=== PATIENT | male | born 1955 | race Caucasian/White ===

== ENCOUNTER 2024-12-11 01:58 | Emergency (ER) | payer OTHER, SELFPAY ==
[2024-12-11 02:01] VITALS: BP 144/82
--- NOTE | 2024-12-11 02:12 | ED.GENMED ---
History of Present Illness
<Marley Scott PA-C - Last Filed: 12/11/24 05:01>
General
Chief Complaint: Musculo-Skeletal Complaint
Source: patient
Exam Limitations: none
Time Seen by Provider: 12/11/24 02:11
Nursing documentation reviewed up to this point in time: agreed with
History of Present Illness
History of Present Illness:
This is a 69-year-old male with a past medical history of coronary artery disease, aortic gnosis status post TAVR, hypertension, presents emergency department today with concerns of low back pain radiating to left leg for the past 2 days. Patient
reports that he was doing a lot of bending and twisting last week doing a lot of gardening work multiple days in a row and states that a few days after that, he developed a dull pain in the paralumbar region. Patient states that suddenly in the
past few days, its gotten a lot worse and today it became so severe that he had a hard time sleeping because he states that the pain tends to be worse when lying back. He does not recall a clear inciting injury. He denies any falls. He does not take
any blood thinners. Patient states that the pain does improve with bending/leaning forward. He has been taking Tylenol at home without relief, and occasionally ibuprofen. He states that today, weight bearing on the left side became painful. He
follows with [facility] and reports that he made an appointment to see a [facility] but the earliest they could get him in was January 03. He denies any saddle paresthesias, any urinary or fecal incontinence, difficulty ambulating, weakness
in his extremities, chest pain, shortness of breath, hematuria, dysuria.
Review of Systems
<Marley Scott PA-C - Last Filed: 12/11/24 05:01>
Review of Systems
All Other Systems: ROS reviewed and negative except as documented in HPI and ROS
Phy Exam
<Marley Scott PA-C - Last Filed: 12/11/24 05:01>
Physical Exam
Physical Exam:
General: Patient is well appearing and in no acute distress; non-toxic
Skin: Warm and dry, no rashes or lesions
Head: Normocephalic, atraumatic
Eyes: Sclera non-icteric. EOMs intact.
Cardiac: Regular rate
Peripheral Vascular: No lower extremity swelling or edema. 2+ dorsalis pedis pulses bilaterally
Pulm: Normal respiratory effort, no wheezes, rales, or rhonchi
Abdomen: No abdominal tenderness to palpation
Musculoskeletal: Negative straight leg raise. Left paralumbar tenderness to palpation, no midline spinal tenderness.
Neuro: CN II-XII intact, no focal neurologic deficits.
Psychiatric: Appropriate mood and affect.
Course
Dailt;Marley Scott PA-C - Last Filed: 12/11/24 05:01>
Orders/Labs/Results
Orders:
Orders
12/11/24 02:27
Ketorolac [Toradol] 15 mg IM NOW STA
CR Lumbar Spine 2 Or 3 Views Urgent
Comment:
Reason For Exam: low back pain radiating into the left leg
12/11/24 03:07
Lidocaine [Lidocaine 4% Patch] 1 patch TOPICAL DAILY ONE
Apply Lidocaine patch(s) to:: left paralumbar region
Oxycodone/Acetaminophen [Percocet 5/325] 1 tablet PO NOW STA
12/11/24 03:11
Ketorolac [Toradol] 45 mg IM NOW STA
12/11/24 04:26
Oxycodone/Acetaminophen [Percocet 5/325] 1 tablet PO NOW STA
Prednisone [Deltasone] 50 mg PO NOW STA
12/11/24 04:33
Cyclobenzaprine HCl [Flexeril] 10 mg PO NOW STA
Vital Signs
Initial and Last Documented VS:
Initial Vital Signs
Temp Pulse Resp BP Pulse Ox
97.8 F 81 20 144/82 99
12/11/24 02:01 12/11/24 02:01 12/11/24 02:01 12/11/24 02:01 12/11/24 02:01
Last Documented Vital Signs
Temp Pulse Resp BP Pulse Ox
97.8 F 81 20 140/93 99
12/11/24 02:01 12/11/24 02:01 12/11/24 02:01 12/11/24 04:42 12/11/24 02:01
<Adriana Car DO - Last Filed: 12/11/24 04:32>
Orders/Labs/Results
Orders:
Orders
12/11/24 02:27
Ketorolac [Toradol] 15 mg IM NOW STA
CR Lumbar Spine 2 Or 3 Views Urgent
Comment:
Reason For Exam: low back pain radiating into the left leg
12/11/24 03:07
Lidocaine [Lidocaine 4% Patch] 1 patch TOPICAL DAILY ONE
Apply Lidocaine patch(s) to:: left paralumbar region
Oxycodone/Acetaminophen [Percocet 5/325] 1 tablet PO NOW STA
12/11/24 03:11
Ketorolac [Toradol] 45 mg IM NOW STA
12/11/24 04:26
Oxycodone/Acetaminophen [Percocet 5/325] 1 tablet PO NOW STA
Prednisone [Deltasone] 50 mg PO NOW STA
12/11/24 04:33
Cyclobenzaprine HCl [Flexeril] 10 mg PO NOW STA
Vital Signs
Initial and Last Documented VS:
Initial Vital Signs
Temp Pulse Resp BP Pulse Ox
97.8 F 81 20 144/82 99
12/11/24 02:01 12/11/24 02:01 12/11/24 02:01 12/11/24 02:01 12/11/24 02:01
Last Documented Vital Signs
Temp Pulse Resp BP Pulse Ox
97.8 F 81 20 140/93 99
12/11/24 02:01 12/11/24 02:01 12/11/24 02:01 12/11/24 04:42 12/11/24 02:01
<Marley Scott PA-C - Last Filed: 12/11/24 05:01>
MDM/Problems Addressed
Differential Diagnosis Includes:
ddx include spinal stenosis, lumbar sprain, DJD/osteoarthritis, herniated disc, bursitis, nephrolithiasis, AAA
MDM/Problems Addressed:
This is a 69-year-old male with a past medical history of coronary artery disease, aortic gnosis status post TAVR, hypertension, presents emergency department today with concerns of low back pain radiating to left leg for the past 2 days. Patient
reports that he was doing a lot of bending and twisting last week doing a lot of gardening work multiple days in a row and states that a few days after that, he developed a dull pain in the paralumbar region which became acutely worse. Does have
pain with weight bearing.'s been taking Tylenol and Motrin without relief. He has no abdominal pain associated with this, no urinary symptoms, no signs concerning for cauda equina, no fevers or chills. On exam, his vital signs are stable he is not
hypotensive he is not tachycardic. He is well-appearing in no acute distress, he does have left-sided paraspinal tenderness palpation but negative straight leg raise, suspect paralumbar sprain with possible component of spinal stenosis considering
his symptoms improved with leaning forward. Low suspicion for aortic pathology. Patient was treated with toradol, percocet, lidocaine patch, muscle relaxant. Patient able to ambulate improved. Patient stable for discharge.
Chronic conditions affecting care:
cad, aortic dissection s/p TAVR,
<Marley Scott PA-C - Last Filed: 12/11/24 05:01>
*Pulse Oximetry
Patient hypoxic: no
*Critical Care Note
Total Time (30-74mins, 75-104mins- exclusive of procedures): Not Applicable
<Marley Scott PA-C - Last Filed: 12/11/24 05:01>
Update Note
Update Note:
Update 3 AM�patient notes no improvement in his symptoms, will give higher dose of Toradol as well as Percocet, and lidocaine patch
Update 3:50 AM�patient states that his symptoms are unchanged compared to initial presentation at the emergency department, patient states that when he got up to use the bathroom, he feels like that triggered his muscle to go into spasm and states
that his pain persists
ED Attending Note
<Marley Scott PA-C - Last Filed: 12/11/24 05:01>
-
Portions of this chart may have been created with voice recognition software.� Occasional wrong word or��sound alike� substitutions may have occurred due to the inherent limitations of voice recognition software.
<Adriana Car DO - Last Filed: 12/11/24 04:32>
ED Attending Note
Patient seen and examined by attending physician: Yes
I performed a history and physical exam of patient and discussed management with resident, I reviewed resident's note and agree with documented findings and plan of care.: Yes
ED Attending Note:
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
No insightful injury but admits to significant bending, lifting, shoveling etc. over the past week while doing extensive gardening.
He does have history of occasional low back pain but no prior history of sciatica, generally his lower back pain resolves in a day or 2 of rest.
No red flags in history nor exam, no weakness or numbness, no saddle anesthesia, no difficulty moving his bowels or bladder, no rash nor fever.
Exam notable for moderate left lumbar paravertebral muscle spasm with local tenderness to palpation along the left lateral lumbar musculature. No midline bony tenderness. Moderately restricted lumbar range of motion related to pain.
No weakness or numbness.
Abdomen is soft without appreciable tenderness. There is a small nontender umbilical hernia noted.
Lumbar spine x-ray shows moderate DJD L4-L5 otherwise unremarkable. Moderate stool throughout the colon without obstruction.
Thus far after an IM dose of Toradol, lidocaine patch, oral dose of Percocet patient notes mild improvement in pain. He is able to reposition with ease, able to stand although tentatively in 1 standing, ambulatory with steady unaided gait.
History and exam consistent with acute lumbar sprain/strain with left-sided sciatica.
Will give an additional dose of Percocet and initiate a course of prednisone.
Recommend initiation of physical therapy and prescription will be provided.
He has an initial appointment with orthopedics in [place] on January 06.
He was scheduled for umbilical hernia repair next week but plans to cancel the surgery until his lower back pain resolves.
He is requesting referral to orthopedics at [facility] [place] to home.
Discharge Plan
Departure
Patient Disposition: Home (Routine Discharge)
Date of Disposition: 12/11/24
Time of Disposition: 04:51
Patient with high blood pressure during this ER visit?: Yes
Condition: Good
Discharge Problem:
Lumbar sprain, Sciatica of left side
Instructions: Sciatica ED, Low back pain - Discharge instructions, BLOOD PRESSURE
Prescriptions:
New
prednisone 10 mg Tablet
See Rx Instructions .ROUTE .COMPLEX Qty: 30 0RF
Rx Instructions:
Take By Mouth:
40 mg daily x3 days, 30 mg daily x3 days,
20 mg daily x3 days, 10 mg daily x3 days.
cyclobenzaprine 10 mg tablet
10 mg PO TID PRN (Reason: muscle spasm) Qty: 10 0RF
Referrals:
Edgar Raygoza MD [Family Provider] -
Job Reaves MD [Active] - Call in 1-3 days for appt
Activity Restrictions/Additional Instructions:
Prednisone has been sent to your pharmacy. Please follow instructions for tapered dosing. Please do not take ibuprofen or other NSAIDs while you are taking this medication.
Cyclobenzaprine, a muscle relaxant, has also been sent to your pharmacy.
Please see attached number for referral for orthopedics. You can call the attached number later today to schedule an appointment.
PLEASE RETURN EMERGENCY DEPARTMENT SHOULD YOU DEVELOP INABILITY TO AMBULATE, GENITAL PARESTHESIAS, URINARY OR FECAL INCONTINENCE, CHEST PAIN, SHORTNESS OF BREATH, LIGHTHEADEDNESS, DIZZINESS, OR ANY OTHER SIGNS OR SYMPTOMS WORRISOME TO YOU.
Interventions
Interventions:
*Risk Screen - Suicide Last Done: 12/11/24 02:01
*General Assessment Last Done: 12/11/24 02:01
*Neglect/Abuse Screening Last Done: 12/11/24 02:01
*ED- Fall Risk Assessment Last Done: 12/11/24 02:01
*ED COVID-19 Vaccine History Last Done: 12/11/24 02:01
ED-Musculoskeletal Assessment Last Done: 12/11/24 02:26
Discharge Date and Time
Print Language: URDU
[2024-12-11 02:25] VITALS: BMI 21.5
[2024-12-11] MEDS: TORADOL 15 MG IM (02:30)
[2024-12-11] MEDS: LIDOCAINE 4% PATCH 1 PATCH TOPICAL (03:14)
[2024-12-11] MEDS: PERCOCET 5/325 1 TABLET PO ×2 (03:14→04:39)
[2024-12-11] MEDS: TORADOL 45 MG IM (03:19)
[2024-12-11] MEDS: FLEXERIL 10 MG PO (04:39)
[2024-12-11] MEDS: DELTASONE 50 MG PO (04:39)
[2024-12-11 04:42] VITALS: BP 140/93
== END 2024-12-11 05:20 | disposition home or self-care (01) ==
LOC: EMR 01:58
PROVIDERS: EMERGENCY PHYSICIAN Emergency Medicine; FAMILY PHYSICIAN Internal Medicine
DX: S33.5XXA Sprain of ligaments of lumbar spine, initial encounter (principal); X50.1XXA Overexertion from prolonged static or awkward postures, initial encounter; M54.42 Lumbago with sciatica, left side; I10 Essential (primary) hypertension; I25.10 Atherosclerotic heart disease of native coronary artery without angina pectoris; E78.5 Hyperlipidemia, unspecified; Z95.2 Presence of prosthetic heart valve
CPT/HCPCS: 96372; 99284; 72100

== ENCOUNTER 2024-12-26 05:47 | Outpatient (RCR) | payer OTHER, SELFPAY | END 2024-12-26 23:59 | disposition home or self-care (01) | LOC: RPT 05:47 | PROVIDERS: ATTENDING PHYSICIAN Emergency Medicine; FAMILY PHYSICIAN Internal Medicine | DX: M54.42 Lumbago with sciatica, left side (principal); S39.012D Strain of muscle, fascia and tendon of lower back, subsequent encounter; Z73.6 Limitation of activities due to disability | CPT/HCPCS: 97112; 97161 ==

== ENCOUNTER 2025-01-15 14:57 | Outpatient (RCR) | payer OTHER, SELFPAY | END 2025-01-15 23:59 | disposition home or self-care (01) | LOC: RPT 14:57 | PROVIDERS: ATTENDING PHYSICIAN Emergency Medicine; FAMILY PHYSICIAN Internal Medicine | DX: M54.42 Lumbago with sciatica, left side (principal); S39.012D Strain of muscle, fascia and tendon of lower back, subsequent encounter; Z73.6 Limitation of activities due to disability; M51.35 Other intervertebral disc degeneration, thoracolumbar region | CPT/HCPCS: 97530 ==

== ENCOUNTER 2025-07-10 13:03 | Inpatient (IN) | payer OTHER, SELFPAY ==
[2025-07-10] VITALS (30 sets, daily range): BP systolic 88–130; BP diastolic 61–97; BMI 23.1
[2025-07-10] MEDS: LOPRESSOR 5 MG IV (09:08)
--- NOTE | 2025-07-10 09:19 | ED.GENMED ---
History of Present Illness
<Armando Rao MD, Resident - Last Filed: 07/10/25 13:22>
General
Chief Complaint: Heart Rate Problem
Source: patient
Time Seen by Provider: 07/10/25 08:36
History of Present Illness
History of Present Illness:
Patient is a 69-year-old male with PMH of AVR, intraoperative NJ, single episode of atrial fibrillation, and recent TIA who presents to the [facility] ED for transient substernal chest pain, shortness of breath, diaphoresis, dizziness, and
palpitations while exercising at the gym this morning. Within 5 minutes of starting weightlifting exercise, these symptoms developed and lasted for approximately 2 minutes. Patient follows with [facility] cardiology. Patient had a TIA approximately
1 month ago. Subsequent workup did not identify source for TIA, and the patient was started on Plavix. Patient also had 1 prior episode of atrial fibrillation, which required treatment with metoprolol to break him out of the arrhythmia. Initial
evaluation in the ED, patient reports no symptoms. However, cardiac monitoring and EKG showed a wide-complex tachycardia. Denies nausea, vomiting, or recent illnesses. Patient exercises regularly and normally tolerates it well. Patient is
scheduled for LOPEZ and loop recorder next week
Past History
<Armando Rao MD, Resident - Last Filed: 07/10/25 13:22>
Past History
ED Past Medical History: Arrthythmia, NJ, Valvular disease (S/p AVR) and Other (TIA)
ED Past Surgical History: Cardiac (AVR)
Review of Systems
<Armando Rao MD, Resident - Last Filed: 07/10/25 13:22>
Review of Systems
Respiratory: Reports trouble breathing
Cardiac: Reports chest pain, diaphoresis and palpitations
ABD/GI: Denies abdominal pain, nausea or vomiting
Neurological: Reports dizzy
Phy Exam
<Armando Rao MD, Resident - Last Filed: 07/10/25 13:22>
Physical Exam
Physical Exam:
General: NAD. Conversant.
CV: Tachycardic. No M/R/G. No LE edema.
Pulm: CTAB. No wheezes or crackles.
Neuro: A&O x 3. NFD. CN II to XII grossly intact.
Course
<Armando Rao MD, Resident - Last Filed: 07/10/25 13:22>
Orders/Labs/Results
Orders:
Orders
07/10/25
Electrocardiogram (*1) Stat
Comment: DONE
Electrocardiogram (*1) Stat
Comment: DONE
07/10/25 08:43
Adenosine [Adenocard] 6 mg .ROUTE .STK-MED ONE
07/10/25 08:49
Metoprolol [Lopressor] 5 mg .ROUTE .STK-MED ONE
07/10/25 08:53
Adenosine [Adenocard] 12 mg .ROUTE .STK-MED ONE
07/10/25 09:06
Metoprolol [Lopressor] 5 mg IV NOW STA
07/10/25 09:17
Propofol [Diprivan] 20 ml .ROUTE .STK-MED
07/10/25 09:57
Complete Blood Count/No Diff Urgent
Comprehensive Metabolic Panel Urgent
Magnesium Urgent
07/10/25 09:58
NT-proBNP Urgent
TSH Urgent
Troponin I Urgent
07/10/25 10:08
Echo 2D MMode Color/Doppler Routine
Reason for Study: ventricular tachycardia
07/10/25 12:36
Admit/Transfer Patient As Directed
Co-Sign Provider:
Level of Care: Inpatient admission
Assign to:: IVU
Physician / Group: jerald
Diagnosis: wide complex tachycardia
Reason for Hospitalization: wide complex tachycardia
Expected length of stay greater than two midnights?: Yes
ELOS- Estimated Length of Stay in days: 2
I certify the patient meets the requirements for IP care: Yes
Code Status As Directed
Resuscitation Status: Full Code
PRN Pain Medication Management As Directed
May give lesser potent ordered pain med per pt: Yes
preference::
Protocol:: Medication orders for pain may be administered in a
manner that supports deferring to patient preference
when the pt is:
- Requesting an ordered lesser potent pain medication.
Least to most potent pain medications are defined
as: acetaminophen < NSAID < tramadol < opioids
(morphine, oxycodone, hydromorphone).
- Requesting a lesser dose of the same medication IF
ORDERED.
- Requesting a less intrusive route of administration
if both routes are prescribed by the provider (PO <
IV).
Abnormal Lab Results
07/10/25
09:57
MCH 31.4 H pg
(27.0-31.0)
MPV 10.5 H fL
(7.4-10.4)
BUN 24 H mg/dl
(9-20)
Glucose 173 H mg/dl
(70-99)
07/10/25 09:57
07/10/25 09:57
Vital Signs
Initial and Last Documented VS:
Initial Vital Signs
Pulse Resp BP Pulse Ox
66 18 123/97 98
07/10/25 08:32 07/10/25 08:32 07/10/25 08:32 07/10/25 08:32
Last Documented Vital Signs
Temp Pulse Resp BP Pulse Ox
98.1 F 58 19 125/79 98
07/10/25 09:53 07/10/25 13:15 07/10/25 13:15 07/10/25 11:00 07/10/25 13:15
<Kenny Stephens MD - Last Filed: 07/10/25 13:31>
Orders/Labs/Results
Orders:
Orders
07/10/25
Electrocardiogram (*1) Stat
Comment: DONE
Electrocardiogram (*1) Stat
Comment: DONE
07/10/25 08:43
Adenosine [Adenocard] 6 mg .ROUTE .STK-MED ONE
07/10/25 08:49
Metoprolol [Lopressor] 5 mg .ROUTE .STK-MED ONE
07/10/25 08:53
Adenosine [Adenocard] 12 mg .ROUTE .STK-MED ONE
07/10/25 09:06
Metoprolol [Lopressor] 5 mg IV NOW STA
07/10/25 09:17
Propofol [Diprivan] 20 ml .ROUTE .STK-MED
07/10/25 09:57
Complete Blood Count/No Diff Urgent
Comprehensive Metabolic Panel Urgent
Magnesium Urgent
07/10/25 09:58
NT-proBNP Urgent
TSH Urgent
Troponin I Urgent
07/10/25 10:08
Echo 2D MMode Color/Doppler Routine
Reason for Study: ventricular tachycardia
07/10/25 12:36
Admit/Transfer Patient As Directed
Co-Sign Provider:
Level of Care: Inpatient admission
Assign to:: IVU
Physician / Group: jerald
Diagnosis: wide complex tachycardia
Reason for Hospitalization: wide complex tachycardia
Expected length of stay greater than two midnights?: Yes
ELOS- Estimated Length of Stay in days: 2
I certify the patient meets the requirements for IP care: Yes
Code Status As Directed
Resuscitation Status: Full Code
PRN Pain Medication Management As Directed
May give lesser potent ordered pain med per pt: Yes
preference::
Protocol:: Medication orders for pain may be administered in a
manner that supports deferring to patient preference
when the pt is:
- Requesting an ordered lesser potent pain medication.
Least to most potent pain medications are defined
as: acetaminophen < NSAID < tramadol < opioids
(morphine, oxycodone, hydromorphone).
- Requesting a lesser dose of the same medication IF
ORDERED.
- Requesting a less intrusive route of administration
if both routes are prescribed by the provider (PO <
IV).
Abnormal Lab Results
07/10/25
09:57
MCH 31.4 H pg
(27.0-31.0)
MPV 10.5 H fL
(7.4-10.4)
BUN 24 H mg/dl
(9-20)
Glucose 173 H mg/dl
(70-99)
07/10/25 09:57
07/10/25 09:57
Vital Signs
Initial and Last Documented VS:
Initial Vital Signs
Pulse Resp BP Pulse Ox
66 18 123/97 98
07/10/25 08:32 07/10/25 08:32 07/10/25 08:32 07/10/25 08:32
Last Documented Vital Signs
Temp Pulse Resp BP Pulse Ox
98.1 F 58 19 125/79 98
07/10/25 09:53 07/10/25 13:15 07/10/25 13:15 07/10/25 11:00 07/10/25 13:15
Procedures
<Kenny Stephens MD - Last Filed: 07/10/25 13:31>
Moderate Sedation
ASA Risk Score: Class I
Chart and allergies reviewed: Yes
Consent for anesthesia obtained: Yes
Time out completed (validating right patient & procedure): Yes
Moderate Sedation Start Time(when first medication is given): 09:22
History of difficult intubation: No
Airway free of obstruction: Yes
Patient has a gag reflex: Yes
Patient is able to open mouth: Yes
Patient has no dentures: Yes
Patient has no loose teeth: Yes
Medication administered by Provider during Moderate Sedation: IV Propofol (mg)
Total dose administered: 40
Time drug administered: 09:22
Moderate Sedation Procedure End Time: 09:32
Cardioversion
Indication:: Other (wide complex tachycardia)
Performed by:: Kenny Stephens M.D.
Synchronized?: Yes
Energy Used: 200 joules
Number of attempts: 1
Successful?: Yes
Complications: None
ASA Risk Score: Class I
Any reaction or bad outcome to prior sedation/anesthesia?: No history of a reaction
Sedation level to be attained: moderate
Chart and allergies reviewed: Yes
Patient reassessed prior to sedation: Yes
Time out completed at (validating right patient & procedure): 09:22
History of difficult intubation: No
Airway free of obstruction: Yes
Patient has a gag reflex: Yes
Patient is able to open mouth: Yes
Patient has no dentures: Yes
Patient has no loose teeth: Yes
Medication administered by Provider during Moderate Sedation: IV Propofol (mg)
Total dose administered: 40
Time drug administered: :
Start Time: :22
Stop Time: 09:32
<Armando Rao MD, Resident - Last Filed: 07/10/25 13:22>
MDM/Problems Addressed
Differential Diagnosis Includes:
Ventricular tachycardia
Atrial fibrillation
Atrial flutter
Myocardial infarction
Ventricular fibrillation
MDM/Problems Addressed:
Assessment: Patient is a 69-year-old male with PMH of AVR, NJ, paroxysmal A-fib, and TIA who presents to the [facility] ED with transient chest pain, shortness of breath, diaphoresis, dizziness, and palpitations while exercising at the gym this
morning. EKG in the ED shows wide-complex tachycardia with a rate of approximately 180 bpm. Patient given 6 mg adenosine, followed by another 12 mg adenosine, neither of which resolved the wide-complex tachycardia. Cardiology was consulted. With
the patient developing shortness of breath, metoprolol 5 mg administered, which also did not break the wide-complex tachycardia. Patient was then put under conscious sedation and underwent electrical cardioversion, which resolved the wide-complex
tachycardia and put the patient into NSR. Following this procedure, patient denies any symptoms, including chest pain, shortness of breath, or palpitations. CBC, CMP, proBNP, troponin unremarkable.
Plan:
#Chest pain
EKG
Labs: CBC, CMP, proBNP, Mg, Phos, troponin
Adenosine administered, did not break wide-complex tachycardia
Metoprolol administered, did not break wide-complex tachycardia
Electrical cardioversion completed, achieved NSR w/ no subsequent symptoms
<Armando Rao MD, Resident - Last Filed: 07/10/25 13:22>
*Pulse Oximetry
SaO2: 98
Oxygen Mode of Delivery: Room air
Patient hypoxic: no
*Critical Care Note
Total Time (30-74mins, 75-104mins- exclusive of procedures): Not Applicable
ED Attending Note
<Armando Rao MD, Resident - Last Filed: 07/10/25 13:22>
-
Portions of this chart may have been created with voice recognition software.� Occasional wrong word or��sound alike� substitutions may have occurred due to the inherent limitations of voice recognition software.
<Kenny Stephens MD - Last Filed: 07/10/25 13:31>
ED Attending Note
Patient seen and examined by attending physician: Yes
ED Attending Note:
Patient with history of paroxysmal atrial fibrillation, currently only taking Plavix after recent TIA event, presents to ED secondary to sudden onset chest pain, shortness of breath, and chest palpitations, while he was at the gym. Since then,
chest pain has resolved, but patient still reports feeling short of breath and lightheaded. Denies nausea or vomiting. Denies fever or chills. Denies recent illness. Denies recent travel or surgery. Denies leg pain or swelling. Of note,
patient states that 3 years ago, he had similar episode where he was treated with multiple doses of Lopressor in ED, with spontaneous conversion.
Physical Exam
General: mild distress, not acutely ill. afebrile
Head: nc/at. eomi
Neck: supple. no meningeal signs.
Heart: regular rhythm but tachycardic. systolic ejection murmur.
Lungs: no acute respiratory distress. clear bilaterally
Abdomen: normal bowel sounds. not tender.
Neuro: alert and oriented x 3. no focal neurological deficits
Skin: no rash
Psychiatric: well kept. interactive and cooperative
Extremities: no edema. no calf tenderness.
Initial EKG reveals quite complex tachycardia, difficult to interpret underlying cardiac rhythm. As such, decision made to administer adenosine. Unfortunately, after administration of 6 mg followed by 12 mg of adenosine, heart rate did not
improve. Patient started complaining of increasing shortness of breath, although not hypoxic, along with mild hypotension. As such, after discussion with on-call cardiology, , decision made to attempt Lopressor 5 mg IV. If unsuccessful,
and the patient remains symptomatic, decision will be made to perform cardioversion. Patient expresses understanding with treatment plan, and consents for procedure, if necessary.
Lopressor 5 mg IV given without success. Patient remains symptomatic. As such, after further discussion, cardioversion recommended.
Procedure consent on the chart.
After administration of propofol 40 mg IV, patient successfully cardioverted with 200 J. Repeat EKG confirms normal sinus rhythm. Q waves noted on inferior leads, per patient, chronic.
Discussed with patient's primary vice president tax @ [facility] () - agrees with plan to admit the patient for further evaluation and treatment.
Critical care statement: A total of 40 minutes of critical care time was provided for this patient. This includes management of unstable vital signs, evaluation of the patient at bedside, reviewing the patient's pertinent medical records, discussion
with consultants, review of old EKGs and review of pertinent medical records. This time with separate from time utilized to perform the aforementioned documented procedures
Discharge Plan
Departure
Patient Disposition: Admit
Date of Disposition: 07/10/25
Time of Disposition: 11:36
Admit to: IMU
Presentation/result/management discussed w/ accepting MD/DO: Hospitalist
Discharge Problem:
Ventricular tachycardia, Hypomagnesemia
Prescriptions:
No Action
atorvastatin [Lipitor] 80 mg Tablet
80 mg PO QPM
enalapril maleate 20 mg Tablet
20 mg PO BID
clopidogrel [Plavix] 75 mg Tablet
75 mg PO DAILY
aspirin 81 mg Tablet,Delayed Release (Dr/Ec)
81 mg PO DAILY
amlodipine [Norvasc] 10 mg Tablet
10 mg PO DAILY
ezetimibe [Zetia] 10 mg Tablet
10 mg PO QPM
cholecalciferol (vitamin D3) [Vitamin D3] 25 mcg (1,000 unit) Tablet
25 mcg PO DAILY
carvedilol phosphate [Coreg CR] 10 mg Capsule, Er Multiphase 24 Hr
10 mg PO DAILY
Referrals:
UNKNOWN - PT NOT,INTERVIEWE [Unknown Provider]
Discharge Date and Time
Print Language: POLISH
[2025-07-10 10:12] LABS: Hematocrit 47.1 % (39.0-52.0); Hemoglobin 16.4 g/dL (13.0-18.0); Mean Corp Hgb Conc. 34.8 g/dL (33.0-37.0); Mean Corpuscular Volume 90.1 fL (80.0-94.0); Platelet Count 166 10^3/uL (130-400); Red Cell Dist. Width 12.8 % (11.5-14.5)
[2025-07-10 10:24] LABS: ALT (SGPT) 29 U/L (0-50); AST (SGOT) 30 U/L (17-59); Albumin 4.5 g/dl (3.5-5.0); Alkaline Phosphatase 81 U/L (38-126); Blood Urea Nitrogen 24 mg/dl (9-20); Calcium 9.9 mg/dl (8.4-10.2); Carbon Dioxide 25 mmol/L (22-30); Chloride 104 mmol/L (98-107); Glucose 173 mg/dl (70-99); Magnesium 2.0 mg/dl (1.6-2.3); Potassium 4.2 mmol/L (3.5-5.1); Sodium 136 mmol/L (135-145); Total Protein 7.1 g/dl (6.3-8.2); eGFR > 60.00
[2025-07-10 10:37] LABS: Troponin I 0.013 ng/ml
[2025-07-10 10:55] LABS: TSH 1.64 uIU/ml (0.47-4.68)
--- NOTE | 2025-07-10 12:09 | CM ---
Chart reviewed and spoke with patient at bedside
Cezar is in the cafeteria. 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
Lives in a 2 sotry home with 3 MUSA. Independent and drives no DME
Yoga daily and runs 3/wk
PCP Dr. Edgar Ryagoza
RX plan yes
Pharmacy [facility] on [address]
Per pt ED doc already talked with his can runner at [facility]
no hx of VN nor SNF
DCP back home w/o services but follow up with his can runner outpt?
can drive him home
CM will continue to follow up for DCP needs
--- NOTE | 2025-07-10 12:39 | HPS.HSE ---
Family Physician
-
Family Physician: Edgar Raygoza
Chief Complaint
-
chest pain
History of Present Illness
69-year-old male past medical history of aortic stenosis status post aortic valve replacement in 1997 and TAVR 3 years ago, CAD status post single-vessel CABG in 1987, atrial fibrillation 3 years ago, hypertension, hypercholesteremia, TIA presenting
for substernal chest pain, shortness of breath, diaphoresis and palpitations exercising at the gym this morning. Symptoms lasted for 5 minutes with persistent diaphoresis afterward. Denies nausea or vomiting. Denies any swelling in the legs or
weight gain.
He had a TIA 1 month ago. Workup did not show any source of TIA and he was started on Plavix.
He has a history of 1 prior episode of atrial fibrillation requiring metoprolol and anticoagulation 3 years ago.
He is scheduled for LOPEZ and loop recorder next week. He sees cardiology at [facility] with Dr. Dewitt.
He denies smoking or alcohol or drugs.
No family history of heart disease.
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
Medical History
Past Medical History
Past Medical History: Reports Other ( aortic stenosis status post aortic valve replacement in 1997 and TAVR 3 years ago, CAD status post single-vessel CABG in 1987, atrial fibrillation 3 years ago, hypertension, hypercholesteremia, TIA )
Past Surgical History: Reports Other (Aortic valve replacement, TAVR, CABG, hernia repair)
Social History
Tobacco: Non-smoker
Alcohol: None
Drug: None
Family History
Family History: Not pertinent
Allergies / Home Medications
Allergies reflects when Allergies were last updated in [facility].
Home Medications with original date entered in [facility]
Allergy/Medication List:
Allergies
Allergy/AdvReac Type Severity Reaction Status Date / Time
No Known Allergies Allergy Unverified 12/11/24 02:00
Home Medications
amlodipine 10 mg tablet (Norvasc) 10 mg PO DAILY Blood Pressure 07/10/25
aspirin 81 mg tablet,delayed release 81 mg PO DAILY Blood Clot Prevention/Tx 07/10/25
atorvastatin 80 mg tablet (Lipitor) 80 mg PO QPM High Cholesterol 07/10/25
carvedilol phosphate 10 mg capsule,[id number] multiphase (Coreg CR) 10 mg PO DAILY Blood Pressure 07/10/25
cholecalciferol (vitamin D3) 25 mcg (1,000 unit) tablet (Vitamin D3) 25 mcg PO DAILY Supplement 07/10/25
clopidogrel 75 mg tablet (Plavix) 75 mg PO DAILY Blood Clot Prevention/Tx 07/10/25
enalapril maleate 20 mg tablet 20 mg PO BID Blood Pressure 07/10/25
ezetimibe 10 mg tablet (Zetia) 10 mg PO QPM High Cholesterol 07/10/25
Review of Systems
-
History Source: Patient
A 12 point ROS was completed and negative except as noted: Yes
Constitutional: Reports No Symptoms
EENT: Reports No Symptoms
Respiratory: Reports See HPI
Cardiac: Reports See HPI
Abdomen/GI: Reports No Symptoms
: Reports No Symptoms
Musculoskeletal: Reports No Symptoms
Skin: Reports No Symptoms
Neurological: Reports No Symptoms
Endocrine: Reports No Symptoms
Hematologic/Lymphatic: Reports No Symptoms
Psych: Reports No Symptoms
Physical Exam
Vital Signs
Vital Signs
Temp Pulse Resp BP Pulse Ox
98.1 F 63 27 119/71 99
07/10/25 09:53 07/10/25 10:00 07/10/25 10:00 07/10/25 10:03 07/10/25 10:03
Physical Exam
General: Well Developed, Well Nourished and No Apparent Distress
HEENT: NormoCephalic, Moist mucous membranes and Atraumatic
Respiratory: Clear
Cardiac: S1/S2 and Regular Rhythm; No Murmur or Rub
GI: Soft, Non Tender, Non Distended and Normal Bowel Sounds; No Organomegaly
Rectal: Deferred by Provider
Musculoskeletal: No Clubbing, No Cyanosis and No Edema
Skin: No Rash
Neuro: Nonfocal/grossly intact
Laboratory Results
-
07/10/25 09:57
07/10/25 09:57
Laboratory Results
Total Bilirubin 0.9 mg/dl (0.2-1.3) 07/10/25 09:57
AST 30 U/L (17-59) 07/10/25 09:57
ALT 29 U/L (0-50) 07/10/25 09:57
Alkaline Phosphatase 81 U/L (38-126) 07/10/25 09:57
Troponin I 0.013 ng/ml 07/10/25 09:58
Data Reviewed
-
Lab Data: Labs Reviewed by me
Old Records: Reviewed
Impression/Plan
-
IMPRESSION:
PLAN:
# Wide-complex tachycardia in the setting of ischemic cardiomyopathy
-First EKG shows wide-complex tachycardia
- Received 6 mg, 12 mg adenosine without improvement in heart rate and later Lopressor 5 mg without improvement and cardioversion was performed with 200 J which was successful
-Cardiac BNP 44
-Troponin 0.013, continue to trend
- Echocardiogram shows EF of 45%, basal to mid inferior/inferior lateral hypokinesis, mild to moderate paravalvular aortic regurgitation,
- Patient states that his baseline ejection fraction is around 45%
History of aortic stenosis status post aortic valve replacement in 1997/subsequent TAVR 3 years ago with subsequent paravalvular aortic regurgitation
CAD status post single-vessel CABG
- Continue aspirin
Ischemic cardiomyopathy
- Prior EF known to be 45%
History of paroxysmal atrial fibrillation
- Continue Coreg
Recent TIA
- Continue aspirin, Plavix, statin,
- Scheduled for LOPEZ and loop recorder next week to evaluate for A-fib
Essential hypertension
- Continue amlodipine, enalapril
Hypercholesterolemia
- Continue Zetia
Full code
DVT prophylaxis�heparin
Regular diet
--- NOTE | 2025-07-10 13:37 | CON.CAR ---
Addendum entered and electronically signed by Steven Merrill MD 07/10/25 15:20:
I saw and examined the patient independently, and performed majority of MDM.
The AIRCRAFT ARMAMENT MECHANIC's note was reviewed and I agree with the note with changes/additions below.
Comment: 69 yo male with bio-AVR and millicent-procedural UT and CABG 1997, then syiul-rd-hhydv TAVR 2021 presents to ED with palps, chest pain, and diaphoresis. Found to be in VT with HR 180s. Underwent DCCV in ED. Now chest pain free. Exam with RRR,
no murmurs, no edema. Echo: EF 45%, inferior HK, TAVR with mild/mod AR. EKG: NSR, inferior infarct.
VT. s/p DCCV. Will proceed to cath for ischemic eval. Based on cath results will consider amiodarone. And also EP evaluation.
ICM EF 45%. Continue coreg.
Original Note:
Consultation
Consultation Request
Date/Time Consultation Requested: 07/10/25 1300
Date/Time Consultation Performed: 07/10/25 1310
Requesting Provider: Dr. Stephens
Performing Provider: Roz DORMAN for Dr. Merrill
Reason for Consultation: Wide complex tachycardia
Medical History
-
Chief Complaint: chest pain, SOB, diaphoresis, tachycardia
History of Present Illness:
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 He had TIA about 3 weeks ago and is
on plavix. He wore an OP monitor for two weeks after and reports no arrhythmia and plan per his precision mechanical instrument maker was LOPEZ and loop next . He reports recent TTE, which he is trying to pull up on his phone, but thinks his EF is typically in the
40's. He was exercising today around 7:30 AM and about 3 minutes into his chest exercise, he developed midsternal CP with associated SOB, diaphoresis, and light-headedness. Chest pain resolved after a few minutes, but other symptoms continued. He
checked his pulse and noted he was very tachycardic. He drove to the ER. In ER, he was seen to have WCT in 180's BPM. Adenosine was attempted, then metoprolol, but ultimately patient required cardioversion. He is now in SR and is feeling fine. Echo
in ER here 45%. Potassium and Magnesium are WNL. Troponin is fine so far.
Past Medical History
Past Medical History: Arrhythmias, CAD, HTN, Hypercholesterolemia and Other (cardiomyopathy, TIA)
Social History
Tobacco: Non-Smoker
Alcohol: Daily (1 drink per day)
Drug: None
Employment: Retired
Family History
Family History: Reviewed & Not Pertinent
Allergies / Home Medications
Allergy/AdvReac Type Severity Reaction Status Date / Time
No Known Allergies Allergy Unverified 12/11/24 02:00
�Medication �Instructions �Recorded �Confirmed �Type
amlodipine 10 mg tablet (Norvasc) 10 mg PO DAILY Blood Pressure 07/10/25 07/10/25 History
aspirin 81 mg tablet,delayed 81 mg PO DAILY Blood Clot 07/10/25 07/10/25 History
release Prevention/Tx
atorvastatin 80 mg tablet (Lipitor) 80 mg PO QPM High Cholesterol 07/10/25 07/10/25 History
carvedilol phosphate 10 mg 10 mg PO DAILY Blood Pressure 07/10/25 07/10/25 History
capsule,[id number] multiphase
(Coreg CR)
cholecalciferol (vitamin D3) 25 25 mcg PO DAILY Supplement 07/10/25 07/10/25 History
mcg (1,000 unit) tablet (Vitamin
D3)
clopidogrel 75 mg tablet (Plavix) 75 mg PO DAILY Blood Clot 07/10/25 07/10/25 History
Prevention/Tx
enalapril maleate 20 mg tablet 20 mg PO BID Blood Pressure 07/10/25 07/10/25 History
ezetimibe 10 mg tablet (Zetia) 10 mg PO QPM High Cholesterol 07/10/25 07/10/25 History
Review of Systems
-
History Source: Patient
All other systems: Negative unless noted
Constitutional: Other (LH)
Respiratory: Trouble Breathing
Cardiac: Chest Pain and Diaphoresis
Physical Exam
Vital Signs
Temp Pulse Resp BP Pulse Ox
98.1 F 58 19 125/79 98
07/10/25 09:53 07/10/25 13:15 07/10/25 13:15 07/10/25 11:00 07/10/25 13:15
Lab Results
07/10/25 09:57
07/10/25 09:57
Troponin I 0.013 ng/ml 07/10/25 09:58
Nmb-O-Cchbsyquptg Pept 44.1 pg/ml 07/10/25 09:58
Physical Exam
General: Well Developed, Well Nourished and No Apparent Distress
HEENT: Normocephalic and Anicteric
Respiratory: Clear and Non Labored Respirations
Cardiac: Regular Rhythm
Musculoskeletal: No Edema
Skin: Warm and Dry
Neuro: AO x 3
Psych: Calm
Impression / Plan
-
Wide complex tachycardia:
-appears to be Ventricular Tachycardia on my review - this diagnosis is threat to life
-resolved s/p cardioversion in ER
-started with CP as noted in detail. Trop okay- next one is pending. Echo as noted below.
-ischemic evaluation with cardiac catheterization today- procedure/risks to be discussed in detail with patient with our nanofabrication specialist- give 243 mg ASA- already took 81 mg today
-depending on ischemic eval, may need EP w/u as well
-continue BB, will not add AAD yet pending above
Hx AVR 1997, TAVR 3 years ago:
-stable overall by echo
-on ASA
HTN:
-stable on medications
-monitor
Hx TIA:
-OP plan per primary precision mechanical instrument maker was LOPEZ and loop next week; apparently had AFIB prior to TAVR 3 years ago and was felt to be valve related so OAC was not continued. Recent OP monitor no afib per patient.
-on Plavix and aspirin- continue
ICM:
-per patent recent echo showed EF 45%, so EF stable on echo here
-hx periprocedural UT 1997 with CABG. Tells me cath prior to TAVR 3 years ago showed non-obstructive disease.
-not volume overloaded to assessment
Data Reviewed
-
EKG: Tracing Personally Visualized and interpreted (WCT 185 BPM)
Medical Tests (Nuc Med, Echo etc): Report Reviewed by me (Echo 07/10/25: 1. Mildly reduced LV systolic function. LVEF is 45%. Basal to mid inferior/inferolateral hypokinesis. 2. S/p TAVR. Peak/mean gradients are 12/6mmHg. Mild/moderate
paravalvular aortic regurgitation. 3. No prior study for comparison.)
Labs: Labs Reviewed by me
[2025-07-10] MEDS: LOW STRENGTH ASPIRIN 243 MG PO (14:56)
[2025-07-10 15:43] LABS: Troponin I 0.073 ng/ml
--- NOTE | 2025-07-10 15:53 | PTCARENOTE ---
Received pt from ER into 2255. Pt is AAOx3 SR on the monitor VSS. given 3 ASA prior to transfer to Bleach Analyst.
--- NOTE | 2025-07-10 16:24 | ITS.CL.PN ---
[employer] - Procedure Note
Procedure
Procedure Note:
CARDIAC CATHETERIZATION REPORT
Date of Procedure: 07/10/2025
Referring: Dr. Jerod Merrill MD, PhD
Indication: ventricular tachycardia
PROCEDURE(S)
1. left heart catheterization
2. coronary angiography
3. bypass graft angiography
ACCESS: 6F right left artery (closure: radial band)
CATHETERS
1. 6F JR4
2. 6F JL3.5
MODERATE SEDATION: 25 minutes of moderate sedation was utilized. An independent medical examiner was present to assist with and help manage the patient's level of consciousness and physiologic status.
HEMODYNAMIC DATA
LV 118/8 (EDP 12) mmHg
AO 107/56 (mean 80) mmHg
CORONARY ANGIOGRAPHY
Dominance: right
LM: large, normal
LAD: large vessel giving rise to an early moderate caliber D1/ramus and moderate caliber D2 before wrapping around the apex. There are trivial luminal irregularies only.
LCx: large vessel giving rise to a large OM1 and small LPL branch. There is no coronary artery disease.
RCA: large vessel giving rise to a large RPDA and several small RPL branches. There is a saphenous vein graft with a widely patent anastomosis to the proximal RCA that backfills to is aorto-ostial anastomosis with contrast washout seen into the
aorta. There is no evidence of vessel stenosis or injury proximal to the SVG-RCA anastomosis and no coronary artery disease otherwise.
BYPASS GRAFT ANGIOGRAPHY:
SVG-BEER BREWER: the SVG forms a patent anastomosis with the proximal RCA. The graft was not selectively engaged as it was fully visualized from retrograde filling via the pala RCA. There is no disease in the graft.
RADIATION: dose 252 mGy; DAP 14.4 Gy*cm2; fluoroscopy time 8.7 min
CONCLUSIONS
1. minimal coronary artery disease s/p single vessel CABG with SVG-RCA. Of note, the RCA is without disease proximal to the vein graft anastomosis.
2. normal LV filling pressure and normal gradient across the Evolut TAVR valve
RECOMMENDATIONS
1. EP consultation for evaluation and treatment of non-ischemic VT
2. primary prevention of coronary artery disease
Copy to: Dr. Constantin Dewitt MD (timber appraiser); Dr. Edgar Raygoza MD (PCP)
Signed: Eduard Polk MD, PhD
--- NOTE | 2025-07-10 16:43 | W.PN.UPDATE ---
Addendum entered and electronically signed by DANDY Narvaez 07/10/25 16:49:
CrCL 79
Addendum entered and electronically signed by DANDY Narvaez 07/10/25 16:48:
QTC 425 ms on SR EKG- okay to initiate.
Original Note:
Update Note
Progress Note Update
Cath did not reveal cause for ventricular arrhythmia. Case discussed with procedure analyst and plan will be for initiation of sotalol. I discussed the plan with patient including staying for 6 doses and EKG and telemetry monitoring. He is
agreeable. EP will see patient this admit as well. I will stop coreg to make room for the sotalol. I discussed plan with nursing as well.
--- NOTE | 2025-07-10 16:44 | CM ---
Reviewed chart. Met with Mr. Ortega and his spouse to review discharge plans. He states prior to admission he resides with his spouse in a two story home with three steps to enter. He states he has a full flight of steps to get to bedroom/full
bathroom. He states he has a powder room on the first floor. He states prior to admission he was independent with ambulation and adls. He states he does not have any DME in the home. He states he has a prescription plan and uses [facility].
Medical work-up in progress. The discharge plan is to return home with his spouse when medically stable.
[2025-07-10] MEDS: LIPITOR 80 MG PO (17:07)
[2025-07-10] MEDS: ZETIA 10 MG PO (17:07)
--- NOTE | 2025-07-10 18:10 | PTCARENOTE ---
Pt returned from CCL @1619 Lt TR band in place distal pulse ox 97%. Pt instructed in activity restrictions verbalized understanding. See flowsheet for vital signs and full assessment.
[2025-07-10] MEDS: BETAPACE 80 MG PO (20:06)
[2025-07-10 20:57] LABS: Troponin I 0.056 ng/ml
[2025-07-10] MEDS: VASOTEC PO (22:20)
[2025-07-10] MEDS: HEPARIN 5000 UNITS SC (22:21)
[2025-07-11] VITALS (7 sets, daily range): BP systolic 103–132; BP diastolic 59–89
--- NOTE | 2025-07-11 00:47 | PTCARENOTE ---
Pt. rec'd at change of shift AAOx3, VSS, NSR on the monitor. Left radial band still on; able to completely remove by 2104 with no hematoma or oozing post removal, circulation WNL. Pt. OOB to chair and ambulatory in room without difficulty.
Sotalol # 1 dose given with 2 hour post EKG showing QTc 444 ms. HS enalapril held per hospitalist SJ Montesinos for SBP 90's to low 100's (asymptomatic). Pt. denies any pain/discomfort, remains SB (40's- 50's) on the monitor. Currently resting
quietly.
[2025-07-11 03:57] LABS: Hematocrit 42.6 % (39.0-52.0); Hemoglobin 15.0 g/dL (13.0-18.0); Mean Corp Hgb Conc. 35.2 g/dL (33.0-37.0); Mean Corpuscular Volume 90.3 fL (80.0-94.0); Nucleated Red Blood Cells % 0 % (-); Platelet Count 144 10^3/uL (130-400); Red Cell Dist. Width 12.9 % (11.5-14.5)
[2025-07-11 04:21] LABS: ALT (SGPT) 27 U/L (0-50); AST (SGOT) 26 U/L (17-59); Albumin 3.9 g/dl (3.5-5.0); Alkaline Phosphatase 54 U/L (38-126); Blood Urea Nitrogen 20 mg/dl (9-20); Calcium 9.3 mg/dl (8.4-10.2); Carbon Dioxide 27 mmol/L (22-30); Chloride 108 mmol/L (98-107); Estimated Creatinine Clearance 78 ml/min; Glucose 91 mg/dl (70-99); HDL Cholesterol 66 mg/dl; LDL Cholesterol, Calculated 31 mg/dl; Potassium 4.3 mmol/L (3.5-5.1); Sodium 140 mmol/L (135-145); Total Protein 6.4 g/dl (6.3-8.2); Very Low Density Lipoprotein 10 mg/dl (0-30); eGFR > 60.00
--- NOTE | 2025-07-11 07:00 | W.PN.CD ---
Today's Communication / Plan
-
Patient presented with wide-complex tachycardia with heart rates in the 180s cardioverted in the ER.
Remains in sinus rhythm overnight.
Sotalol initiated. Will continue current therapy and monitor ECGs. Monitor on telemetry. Additional assessment by EP on Sunday
Impression / Plan
-
Wide complex tachycardia:
-appears to be Ventricular Tachycardia
-resolved s/p cardioversion in ER
-started with CP as noted in detail. Trop okay- next one is pending. Echo as noted below.
- Cardiac catheterization 07/10/2025 with no evidence of obstructive coronary artery disease. (Images reviewed. Due to technical factors full report not currently available)
- Sotalol initiated. QTc 444. Beta-sindhu/Coreg stopped.
- Heart rate in 50s. Monitoring sotalol.
.
Hx AVR 1997, TAVR 3 years ago:
-stable overall by echo
-on ASA
HTN:
-stable on medications
-monitor
Hx TIA:
- transient double vision and vertigo which she says was suspected TIA
-OP plan per primary coil tester was LOPEZ and loop next week; apparently had AFIB prior to TAVR 3 years ago and was felt to be valve related so OAC was not continued. Recent OP monitor no afib per patient.
-on Plavix and aspirin- continue
ICM: Echocardiogram this admission 07/10/2025 with ejection fraction 45% TAVR valve with mean gradient 6 mmHg mild to moderate paravalvular AR
-per patent recent echo showed EF 45%, so EF stable on echo here
-hx periprocedural CT 1997 with CABG. Tells me cath prior to TAVR 3 years ago showed non-obstructive disease.
- Catheterization this admit with no obstructive disease
Physical Exam
Vital Signs/Labs
Vital Signs
Temp Pulse Resp BP Pulse Ox
97.8 F 46 16 123/81 96
07/11/25 03:27 07/11/25 05:00 07/11/25 03:27 07/11/25 03:26 07/11/25 03:27
07/10/25 07/11/25 07/12/25
06:59 06:59 05:59
Actual Weight 64.9 kg
07/11/25 03:28
07/11/25 03:28
Magnesium 2.0 mg/dl (1.6-2.3) 07/10/25 09:57
Triglycerides 54 mg/dl (10-149) 07/11/25 03:28
LDL Cholesterol, Calc 31 mg/dl 07/11/25 03:28
VLDL Cholesterol, Calc 10 mg/dl (0-30) 07/11/25 03:28
HDL Cholesterol 66 mg/dl 07/11/25 03:28
TSH 1.64 uIU/ml (0.47-4.68) 07/10/25 09:58
07/10/25
09:58
Ppc-T-Zoffawbrsap Pept 44.1
LAB Results
07/10/25 07/10/25 07/10/25
09:58 14:50 20:23
Troponin I 0.013 0.073 H* D 0.056 H*
Physical Exam
Constitutional: No acute distress
EENT: Anicteric
Cardiovascular: Rhythm & rate is regular and Systolic murmur present
Respiratory: Wheeze Absent and Rhonchi Absent
GI: Soft and Non tender
Neuro/Psych: Alert, Oriented and AO x 3
Other: Cath Site (Fine.) and Other
Data Reviewed
-
Date of Service: July 11, 2025
Medical Decision Making: Reviewed Test Results
Echo: Report Reviewed by me
X-Ray/CT/US/MRI/NUC/PET: Other (Reviewed cardiac catheterization images)
Medical Tests (PFT, Pathology etc): Report Reviewed by me
Labs: Labs Reviewed by me
--- NOTE | 2025-07-11 07:53 | W.PN.HOSP.TC ---
Today's Communication/Plan
-
See plan
Assessment / Plan
Assessment / Plan
Physical Exam
General: Well Developed, Well Nourished and No Apparent Distress
HEENT: Normocephalic, Moist mucous membranes and Atraumatic
Respiratory: Clear
Cardiac: S1/S2 and Regular Rhythm
GI: Soft, Non Tender, Non Distended and Normal Bowel Sounds
Musculoskeletal: No Cyanosis and No Edema
Skin: Warm. Dry.
Neuro: AAOx3. Nonfocal/grossly intact
Assessment/Plan
69-year-old male past medical history of aortic stenosis status post aortic valve replacement in 1997 and TAVR 3 years ago, CAD status post single-vessel CABG in 1987, atrial fibrillation 3 years ago, hypertension, hypercholesteremia, TIA presenting
for substernal chest pain, shortness of breath, diaphoresis and palpitations exercising at the gym on 07/10/25 morning. Symptoms lasted for 5 minutes with persistent diaphoresis afterward. Denies nausea or vomiting. Denies any swelling in the legs
or weight gain. He had a TIA 1 month prior to presentation. Workup did not show any source of TIA and he was started on Plavix. He has a history of 1 prior episode of atrial fibrillation requiring metoprolol and anticoagulation 3 years ago. He is
scheduled for LOPEZ and loop recorder next week. He sees cardiology at [facility] with Dr. Dewitt. He denies smoking or alcohol or drugs. No family history of heart disease. 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
# Wide-complex tachycardia in the setting of ischemic cardiomyopathy -- Ventricular Tachycardia
-Status post cardioversion in the ER with resolution
-Cardiac catheterization 07/10/2025 with no evidence of obstructive coronary artery disease
- Received 6 mg, 12 mg adenosine without improvement in heart rate and later Lopressor 5 mg without improvement and cardioversion was performed with 200 J which was successful
-Cardiac BNP 44
-Troponins noted
- Echocardiogram shows EF of 45%, basal to mid inferior/inferior lateral hypokinesis, mild to moderate paravalvular aortic regurgitation,
- Patient states that his baseline ejection fraction is around 45%
-Continue Sotalol and monitor in IVU (Coreg stopped)
History of aortic stenosis status post aortic valve replacement in 1997/subsequent TAVR 3 years ago with subsequent paravalvular aortic regurgitation
CAD status post single-vessel CABG
- Continue aspirin
Ischemic cardiomyopathy
- Prior EF known to be 45%
History of paroxysmal atrial fibrillation
- Coreg replaced with Sotalol -- monitor for adverse effects of Sotalol
Recent TIA
- Continue aspirin, Plavix, statin,
- Scheduled for LOPEZ and loop recorder next week to evaluate for A-fib
Essential hypertension
- Continue amlodipine, enalapril
Hypercholesterolemia
- Continue Zetia
Full code
DVT prophylaxis�heparin
Regular diet
Anticipated Discharge: > 48 hours
Subjective/Interval History
-
Date of Service: July 11, 2025
Patient was seen and examined. He reported feeling much better today, no chest pain or any other new symptoms or complaints.
Objective Data
-
Labs:
Laboratory Results
07/11/25
03:28
WBC 5.1
Hgb 15.0
Hct 42.6
Plt Count 144
Sodium 140
Potassium 4.3
Chloride 108 H
Carbon Dioxide 27
BUN 20
Creatinine 0.8
Glucose 91
Calcium 9.3
Total Bilirubin 0.7
AST 26
ALT 27
Alkaline Phosphatase 54
Vital Signs:
Vital Signs
Temp Pulse Resp BP Pulse Ox
97.5 F 46 18 123/81 99
07/11/25 07:49 07/11/25 05:00 07/11/25 07:49 07/11/25 03:26 07/11/25 07:49
I&O
07/10/25 07/11/25 07/12/25
06:59 06:59 05:59
Intake Total 480 / 480
Balance 480 / 480
--- NOTE | 2025-07-11 08:00 | PTCARENOTE ---
Assumed care of pt from prev nsg shift; Pt AAOx3 w/no c/o CP or SOB. Pt's VSS w/HR in the 50's & BP 132/89. Pt is SB on telemetry monitoring. Pt w/L radial site w/dressing C/D/I w/no signs or symptoms of bleeding or hematoma. Pt reporting some mild
constipation & requesting Senokot-S. This RN asked MD for an order. Pt w/no addtl needs at this time. Call scanlon within to reach.
[2025-07-11] MEDS: BETAPACE 80 MG PO (08:33)
[2025-07-11] MEDS: ASPIR LOW (ENTERIC COATED) 81 MG PO (08:34)
[2025-07-11] MEDS: NORVASC 10 MG PO (08:34)
[2025-07-11] MEDS: VASOTEC 20 MG PO (08:34)
[2025-07-11] MEDS: HEPARIN 5000 UNITS SC ×2 (08:34→19:57)
[2025-07-11] MEDS: PLAVIX 75 MG PO (08:34)
[2025-07-11] MEDS: VITAMIN D3 (cholecalciferol) 25 MCG PO (08:34)
[2025-07-11] MEDS: SENOKOT-S 1 TABLET PO (12:08)
[2025-07-11] MEDS: LIPITOR 80 MG PO (18:34)
[2025-07-11] MEDS: ZETIA 10 MG PO (18:34)
[2025-07-11 19:18] LABS: Hepatitis C Antibody Negative (Negative)
[2025-07-11] MEDS: SENOKOT-S PO (19:53)
--- NOTE | 2025-07-11 20:41 | PTCARENOTE ---
Pt's resting HR mid 40's (sitting in chair reading a book). Dr. Eaton notified, instructed to hold tonight's Sotalol dose. Pt. otherwise has no complaints, left radial cath site WNL.
[2025-07-11] MEDS: BETAPACE PO (21:02)
[2025-07-11] MEDS: VASOTEC PO (22:28)
[2025-07-12 02:54] VITALS: BP 115/68
[2025-07-12 03:32] LABS: Hematocrit 43.9 % (39.0-52.0); Hemoglobin 14.6 g/dL (13.0-18.0); Mean Corp Hgb Conc. 33.3 g/dL (33.0-37.0); Mean Corpuscular Volume 91.3 fL (80.0-94.0); Platelet Count 150 10^3/uL (130-400); Red Cell Dist. Width 12.8 % (11.5-14.5)
[2025-07-12 03:56] LABS: Blood Urea Nitrogen 16 mg/dl (9-20); Calcium 9.3 mg/dl (8.4-10.2); Carbon Dioxide 25 mmol/L (22-30); Chloride 108 mmol/L (98-107); Estimated Creatinine Clearance 78 ml/min; Glucose 91 mg/dl (70-99); Magnesium 2.1 mg/dl (1.6-2.3); Potassium 4.2 mmol/L (3.5-5.1); Sodium 139 mmol/L (135-145); eGFR > 60.00
[2025-07-12 07:34] VITALS: BP 120/74
[2025-07-12] MEDS: VITAMIN D3 (cholecalciferol) 25 MCG PO (08:37)
[2025-07-12] MEDS: SENOKOT-S 1 TABLET PO (08:37)
[2025-07-12] MEDS: ASPIR LOW (ENTERIC COATED) 81 MG PO (08:37)
[2025-07-12] MEDS: NORVASC 10 MG PO (08:37)
[2025-07-12] MEDS: PLAVIX 75 MG PO (08:37)
[2025-07-12] MEDS: HEPARIN 5000 UNITS SC ×2 (08:38→19:12)
[2025-07-12] MEDS: VASOTEC 20 MG PO ×2 (08:38→19:13)
--- NOTE | 2025-07-12 08:38 | W.PN.HOSP.TC ---
Today's Communication/Plan
-
Transfer to [facility] today
Assessment / Plan
Assessment / Plan
Physical Exam
General: Well Developed, Well Nourished and No Apparent Distress
HEENT: Normocephalic, Moist mucous membranes and Atraumatic
Respiratory: Clear
Cardiac: S1/S2 and Regular Rhythm
GI: Soft, Non Tender, Non Distended and Normal Bowel Sounds
Musculoskeletal: No Cyanosis and No Edema
Skin: Warm. Dry.
Neuro: AAOx3. Nonfocal/grossly intact
Assessment/Plan
69-year-old male past medical history of aortic stenosis status post aortic valve replacement in 1997 and TAVR 3 years ago, CAD status post single-vessel CABG in 1987, atrial fibrillation 3 years ago, hypertension, hypercholesteremia, TIA presenting
for substernal chest pain, shortness of breath, diaphoresis and palpitations exercising at the gym on 07/10/25 morning. Symptoms lasted for 5 minutes with persistent diaphoresis afterward. Denies nausea or vomiting. Denies any swelling in the legs
or weight gain. He had a TIA 1 month prior to presentation. Workup did not show any source of TIA and he was started on Plavix. He has a history of 1 prior episode of atrial fibrillation requiring metoprolol and anticoagulation 3 years ago. He is
scheduled for LOPEZ and loop recorder next week. He sees cardiology at [facility] with Dr. Dewitt. He denies smoking or alcohol or drugs. No family history of heart disease. 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
# Wide-complex tachycardia in the setting of ischemic cardiomyopathy -- Ventricular Tachycardia
-Status post cardioversion in the ER with resolution
-Cardiac catheterization 07/10/2025 with no evidence of obstructive coronary artery disease
- Received 6 mg, 12 mg adenosine without improvement in heart rate and later Lopressor 5 mg without improvement and cardioversion was performed with 200 J which was successful
-Cardiac BNP 44
-Troponins noted
- Echocardiogram shows EF of 45%, basal to mid inferior/inferior lateral hypokinesis, mild to moderate paravalvular aortic regurgitation,
- Patient states that his baseline ejection fraction is around 45%
-Continue Sotalol and monitor in IVU (Coreg stopped)
-Patient is being transferred to [facility] today
History of aortic stenosis status post aortic valve replacement in 1997/subsequent TAVR 3 years ago with subsequent paravalvular aortic regurgitation
CAD status post single-vessel CABG
- Continue aspirin
Ischemic cardiomyopathy
- Prior EF known to be 45%
History of paroxysmal atrial fibrillation
- Coreg replaced with Sotalol -- monitor for adverse effects of Sotalol
Recent TIA
- Continue aspirin, Plavix, statin,
- Scheduled for LOPEZ and loop recorder next week to evaluate for A-fib
Essential hypertension
- Continue amlodipine, enalapril
Hypercholesterolemia
- Continue Zetia
Full code
DVT prophylaxis�heparin
Regular diet
I called [facility] transfer center at [phone] Soni accepted him for transfer.
More than 30 minutes spent in discharge including
Final examination of the patient
Summarizing hospital stay
Instructions for continuing care to all relevant caregivers
Preparation of discharge records, prescriptions, and referral forms
Total time spent (in minutes): 55
Anticipated Discharge: Today
Subjective/Interval History
-
Date of Service: July 12, 2025
Patient was seen and examined. He denied any dizziness, chest pain, shortness of breath or any other symptoms or complaints.
Objective Data
-
Labs:
Laboratory Results
07/12/25
03:02
WBC 5.0
Hgb 14.6
Hct 43.9
Plt Count 150
Sodium 139
Potassium 4.2
Chloride 108 H
Carbon Dioxide 25
BUN 16
Creatinine 0.8
Glucose 91
Calcium 9.3
Vital Signs:
Vital Signs
Temp Pulse Resp BP Pulse Ox
98.2 F 64 15 120/74 99
07/12/25 07:34 07/12/25 08:00 07/12/25 07:34 07/12/25 07:34 07/12/25 07:34
I&O
07/11/25 07/12/25 07/13/25
06:59 05:59 06:59
Intake Total 480 / 480 1919
Balance 480 / 480 1919
[2025-07-12 11:03] VITALS: BP 143/74
[2025-07-12] MEDS: BETAPACE 80 MG PO (12:12)
--- NOTE | 2025-07-12 13:28 | W.PN.UPDATE ---
Update Note
Progress Note Update
I spoke with patient. Patient had a conversation with his long time audit lead Dr. Winston Dewitt and based on his conversation patient has requested to be transferred to [facility] for additional management. I had a direct discussion with Dr. Montero "Hue"Esdras who confirmed the conversation and agreed [facility] would take him in transfer. I also updated Dr. Dewitt about patient's presentation, diagnostic testing and treatment since his hospitalization. I had a discussion with the patient
regarding his medical issues and recommendations for treatment. He still requests transfer . I reviewed with patient issues related to transfer including risks and possible increased cost. Patient understands the above and still wishes to be
transferred. During the conversation Dr. Martinez who is the attending hospitalist was present.
[2025-07-12 15:31] VITALS: BP 122/67
[2025-07-12] MEDS: ZETIA 10 MG PO (18:06)
[2025-07-12] MEDS: LIPITOR 80 MG PO (18:06)
[2025-07-12 19:09] VITALS: BP 127/77
[2025-07-12] MEDS: SENOKOT-S PO (19:12)
--- NOTE | 2025-07-12 19:28 | W.DCSUMMARY ---
Discharge Summary
Discharge Data
Date of Admission: 07/10/25
Date of Discharge: 07/12/25
Total time spent discharging patient (in min): 55
-
Pending Results: No
Hospital Course
69 year-old male with past medical history of TIA, aortic stenosis status post aortic valve replacement in 1997 and TAVR 3 years prior to presentation, CAD status post single-vessel CABG in 1987, atrial fibrillation 3 years prior to presentation,
hypertension, hyperlipidemia and TIA presented for substernal chest pain, shortness of breath, diaphoresis and palpitations exercising at the gym earlier in the day in the morning of the day of presentation; his symptoms lasted for 5 minutes with
persistent diaphoresis afterward. Patient was noted to have sustained ventricular tachycardia with heart rates in the ~180 bpm, needing cardioversion. Cardiac cath was later done, and as per evaluation advisor's report, it showed minimal coronary artery
disease status post single vessel CABG with SVG-RCA, the RCA is without disease proximal to the vein graft anastomosis and normal LV filling pressure and normal gradient across the Evolut TAVR valve. Cardiology recommended electrophysiology
consultation for evaluation and treatment of non-ischemic ventricular tachycardia and primary prevention of coronary artery disease. So cardiac cath did not show cause for ventricular arrhythmia. Patient's Coreg was stopped and Sotalol was started.
Patient and his outpatient evaluation advisor wanted patient to be transferred to [facility], therefore he was transferred there on July 12, 2025.
Discharge Plan
-
Patient Disposition: Acute Care Hospital
Condition: Good
Discharge Orders:
Discharge Patient (As Directed); Ordered 07/12/25
Ordered By: Fletcher Martinez
Discharge Date and Time
Discharge Date/Time: 07/12/25 20:35
Print Language: CYMRAES
--- NOTE | 2025-07-12 19:33 | PTCARENOTE ---
Report called to Luciano CARRILLO at [facility]. 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 Transfer center notified ([phone])
--- NOTE | 2025-07-12 20:49 | PTCARENOTE ---
Assumed care of patient at change of shift. Pt AAOx3, SB-SR on tele, and denies any pain or discomfort. Ambulates self in room, denies any dizziness. 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 Palpable pulses throughout. Patient picked up by transport at 20:35 coty. Tele
monitor removed. Tsf papers sent w/ ambulance. All belongings sent w/ patient.
Previous day shift LORENA Farmer gave telephone report to RN at [facility].
== END 2025-07-12 20:35 | disposition short-term general hospital (02) | DRG 287 ==
LOC: IVU 13:03
PROVIDERS: Student in an Organized Health Care Education/Training Program; ADMITTING PHYSICIAN Hospitalist; ATTENDING PHYSICIAN Hospitalist; EMERGENCY PHYSICIAN Emergency Medicine; FAMILY PHYSICIAN Internal Medicine; OTHER PHYSICIAN Internal Medicine
PROC: B2111ZZ Fluoroscopy of Multiple Coronary Arteries using Low Osmolar Contrast (ICD-10-PCS; 2025-07-10)
PROC: 4A023N7 Measurement of Cardiac Sampling and Pressure, Left Heart, Percutaneous Approach (ICD-10-PCS; 2025-07-10)
PROC: 5A2204Z Restoration of Cardiac Rhythm, Single (ICD-10-PCS; 2025-07-10)
DX: I47.20 Ventricular tachycardia, unspecified (principal); E78.00 Pure hypercholesterolemia, unspecified; I10 Essential (primary) hypertension; I25.10 Atherosclerotic heart disease of native coronary artery without angina pectoris; I25.5 Ischemic cardiomyopathy; I48.0 Paroxysmal atrial fibrillation; Z79.02 Long term (current) use of antithrombotics/antiplatelets; Z79.82 Long term (current) use of aspirin; Z86.73 Personal history of transient ischemic attack (TIA), and cerebral infarction without residual deficits; Z95.1 Presence of aortocoronary bypass graft; Z95.2 Presence of prosthetic heart valve
CPT/HCPCS: 80048; 80053; 80061; 83735; 83880; 84443; 84484; 85025; 85027; 86803; 92960; 93005; 93306; 93459; 96374; 99152; 99153; 99291; C1769; C1894; J0153; Q9967